=== PATIENT | male | born 1965 | race American Indian/Alaskan Native ===

== ENCOUNTER 2020-06-28 01:46 | Observation (INO) | payer OTHER ==
[2020-06-28] MEDS ORDERED: ASPIRIN 325 MG TAB PO ONE (02:11)
--- NOTE | 2020-06-28 02:39 | Emergency Department Report ---
ED Chest Pain HPI - General Chief Complaint: Chest Pain Stated Complaint: CHEST PAIN PUI?: No Time Seen by Provider: 06/28/20 02:36 Source: patient Mode of arrival: Ambulatory Limitations: No Limitations - History of Present Illness Initial Comments: Patient is a 55-year-old male that presents emergency room with complaints of l eft-sided chest pain. Patient states his chest pain started 2 days ago. Patient states his chest. Has been intermittent. Patient states to chest pain denies was gone prior to going to bed and then the chest pain came back and woke him up from his sleep approximately 3 hours ago. Patient denies shortness of breath. Patient states his chest pain is better with rest and worse with exertion. Patient denies fever and chills. Patient denies cough. Patient denies nausea vomiting. Patient denies diarrhea paresis. Patient states he has had a heart attack in the past. Patient states he has stents in his heart. Patient denies recent travel. Patient denies recent international travel. Klever tejeda denies exposure to the novel coronavirus. Patient denies sick contacts. Patient denies fever and chills. Patient denies cough. Patient denies diarrhea. Patient denies coming in contact with anybody with symptoms of the novel coronavirus. Complaint: chest pain -: Sudden, days(s) Onset: awoke with symptoms Pain Location: left chest Pain Radiation: none Severity: severe Severity scale (0 -10): 10 Consistency: constant Improves With: rest Worsens With: exertion re: denies: nausea, vomting, diaphoresis, dyspnea, sense of impending doom Other Symptoms: denies: cough, fever, syncope, rash, acid taste in mouth, leg swelling, palpitations, burping Treatments Prior to Arrival: none Aspirin use within the Past 7 Days: (1) Yes - Related Data On Oral Contraceptives: No Allergies Allergy/AdvReac Type Severity Reaction Status Date / Time No Known Allergies Allergy Verified 06/28/20 02:42 Heart Score - HEART Score History: Moderately suspicious EKG: Normal Age: 45-65 Risk factors: > 3 risk factors or hx of atherosclerotic disease Troponin: < normal limit HEART Score: 4 ED Review of Systems ROS: Stated complaint: CHEST PAIN Other details as noted in HPI Constitutional: denies: chills, fever Eyes: denies: eye pain, eye discharge, vision change ENT: denies: ear pain, throat pain Respiratory: denies: cough, shortness of breath, wheezing Cardiovascular: chest pain. denies: palpitations Endocrine: no symptoms reported Gastrointestinal: denies: abdominal pain, nausea, diarrhea Genitourinary: denies: urgency, dysuria Musculoskeletal: denies: back pain, joint swelling, arthralgia Skin: denies: rash, lesions Neurological: denies: headache, weakness, paresthesias Psychiatric: denies: anxiety, depression Hematological/Lymphatic: denies: easy bleeding, easy bruising ED Past Medical Hx - Past Medical History Previous Medical History?: Yes Hx CVA: Yes Hx Heart Attack/AMI: Yes - Surgical History Past Surgical History?: Yes Hx Coronary Stent: Yes - Family History Family history: no significant - Social History Smoking Status: Never Smoker Substance Use Type: None ED Physical Exam - General Limitations: No Limitations General appearance: alert, in no apparent distress - Head Head exam: Present: atraumatic, normocephalic - Eye Eye exam: Present: normal appearance - ENT ENT exam: Present: mucous membranes moist - Neck Neck exam: Present: normal inspection - Respiratory Respiratory exam: Present: normal lung sounds bilaterally. Absent: respiratory distress - Cardiovascular Cardiovascular Exam: Present: regular rate, normal rhythm. Absent: systolic murmur, diastolic murmur, rubs, gallop - GI/Abdominal GI/Abdominal exam: Present: soft, normal bowel sounds - Rectal Rectal exam: Present: deferred - Extremities Exam Extremities exam: Present: normal inspection - Back Exam Back exam: Present: normal inspection - Neurological Exam Neurological exam: Present: alert, oriented X3 - Psychiatric Psychiatric exam: Present: normal affect, normal mood - Skin Skin exam: Present: warm, dry, intact, normal color. Absent: rash ED Course Vital Signs 06/28/20 06/28/20 06/28/20 02:03 02:22 02:27 Temperature 98.0 F Pulse Rate 76 76 Respiratory 18 24 18 Rate Blood Pressure 179/121 O2 Sat by Pulse 100 100 Oximetry 06/28/20 06/28/20 06/28/20 02:30 02:45 03:00 Temperature Pulse Rate 77 68 69 Respiratory 18 24 19 Rate Blood Pressure 201/114 184/123 192/162 O2 Sat by Pulse 96 96 100 Oximetry 06/28/20 06/28/20 06/28/20 03:15 03:30 03:46 Temperature Pulse Rate 67 67 69 Respiratory 21 11 L 21 Rate Blood Pressure 202/127 201/128 232/159 O2 Sat by Pulse 94 97 96 Oximetry 06/28/20 06/28/20 06/28/20 04:00 04:15 04:30 Temperature Pulse Rate 66 65 62 Respiratory 22 21 21 Rate Blood Pressure 205/131 192/116 232/138 O2 Sat by Pulse 96 95 97 Oximetry 06/28/20 04:45 Temperature Pulse Rate 65 Respiratory 22 Rate Blood Pressure 189/119 O2 Sat by Pulse 98 Oximetry - Reevaluation(s) Reevaluation #1: Patient's blood pressure still elevated. Patient heart rate is below 70. Patient will be given hydralazine. I discussed all results with patient. I discussed plan of care with patient. Patient agrees with plan of care and admission. Patient to be admitted to the hospitalist service. 06/28/20 04:15 Reevaluation #2: Patient's blood pressure is currently 179/105. Patient's blood pressure is improving. 06/28/20 05:34 - Consultations Consultation #1: I discussed case with Dr. Negro, interventional cardiology. Dr. Negro states that the EKG is completely normal and is not a STEMI. 06/28/20 02:17 Consultation #2: Hospitalist consulted for admission. Hospitalist to admit patient. 06/28/20 04:18 SAHRA score - Sahra Score Age > 65: (0) No Aspirin use within the Past 7 Days: (1) Yes 3 or more CAD Risk Factors: (1) Yes 2 or more Angina events in past 24 hrs: (1) Yes Known CAD with more than 50% Stenosis: (0) No Elevated Cardiac Markers: (0) No ST Deviation Greater than 0.5mm: (0) No SAHRA Score: 3 ED Medical Decision Making - Lab Data Result diagrams: 06/28/20 02:24 06/28/20 02:24 - EKG Data -: EKG Interpreted by Me EKG shows normal: sinus rhythm, axis, intervals, QRS complexes, ST-T waves Rate: normal - Radiology Data Radiology results: report reviewed, image reviewed interpreted by me: Chest x-ray: No pneumonia, no pneumothorax, no foreign body, no osseous findings, no acute findings - Medical Decision Making Patient is a 55-year-old male that presents emergency room with complaints of chest pain. Patient chest pain going on for 2 days intermittently. Patient has coronary risk factors. Patient has CAD. Patient had labs done which were essentially unremarkable. Patient troponin is negative. Patient EKG is negative for acute findings and is a normal EKG. patient blood pressure elevated. Patient's blood pressure is consistent with hypertensive emergency. Patient given hydralazine. Patient admitted to the hospital service for further evaluation treatment and rule out ACS. - Differential Diagnosis Chest pain, ACS, CAD, hypertensive emergency Critical Care Time: Yes Critical care time in (mins) excluding proc time.: 35 Critical care attestation.: If time is entered above; I have spent that time in minutes in the direct care of this critically ill patient, excluding procedure time. Critical Care Time: 35 minutes ED Disposition Clinical Impression: Hypertensive emergency Chest pain Qualifiers: Chest pain type: unspecified Qualified Code(s): R07.9 - Chest pain, unspecified CAD (coronary artery disease) Qualifiers: Coronary Disease-Associated Artery/Lesion type: unspecified vessel or lesion type [place] vs. transplanted heart: unspecified whether [place] or transplanted heart Associated angina: angina presence unspecified Qualified Code(s): I25.10 - Atherosclerotic heart disease of [place] coronary artery without angina pectoris Disposition: DC-09 OP ADMIT IP TO THIS HOSP Is pt being admited?: Yes Does the pt Need Aspirin: No Condition: Critical Time of Disposition: 04:20
[2020-06-28 02:45] LABS: Basophils # (Auto) 0.1 K/mm3 (0.0-0.1); Basophils % (Auto) 0.8 % (0.0-1.8); Eosinophils # (Auto) 0.2 K/mm3 (0.0-0.4); Eosinophils % (Auto) 2.5 % (0.0-4.3); Lymphocytes # (Auto) 2.9 K/mm3 (1.2-5.4); Lymphocytes % (Auto) 43.4 % (13.4-35.0); Monocytes # (Auto) 0.5 K/mm3 (0.0-0.8); Monocytes % (Auto) 7.3 % (0.0-7.3)
[2020-06-28 02:48] LABS: Hemoglobin 15.4 gm/dl (11.8-15.2); Red Blood Count 4.63 M/mm3 (3.65-5.03)
[2020-06-28 02:49] LABS: Hematocrit 43.1 % (35.5-45.6); Mean Corpuscular HGB Conc 36 % (32-34); Mean Corpuscular Volume 93 fl (84-94); Platelet Count 396 K/mm3 (140-440); Red Cell Distribution Width 13.7 % (13.2-15.2)
--- NOTE | 2020-06-28 02:57 | XRay Report ---
CHEST 1 VIEW 06/28/2020 1:46 AM INDICATION / CLINICAL INFORMATION: Chest Pain. COMPARISON: None available. FINDINGS: SUPPORT DEVICES: None. HEART / MEDIASTINUM: No significant abnormality. LUNGS / PLEURA: No significant pulmonary or pleural abnormality. No pneumothorax. ADDITIONAL FINDINGS: No significant additional findings. IMPRESSION: 1. No acute findings. Signer Name: Emir Templeton MD Signed: 06/28/2020 2:52 AM Workstation Name: [id number]
[2020-06-28 03:04] LABS: BUN/Creatinine Ratio 16; Blood Urea Nitrogen 14 mg/dL (9-20); Calcium 9.1 mg/dL (8.4-10.2); Hemolysis Index 4
[2020-06-28] MEDS ORDERED: METOPROLOL TARTRATE 5 MG/5 ML INJ IV ONE (04:16)
[2020-06-28] MEDS ORDERED: hydrALAZINE 20 MG/1 ML INJ IV ONE (04:23)
[2020-06-28] MEDS ORDERED: NITROGLYCERIN 0.4 MG TAB SUBL SL PRN (04:33)
[2020-06-28] MEDS ORDERED: MORPHINE 2 MG/1 ML INJ IV PRN (04:33)
[2020-06-28] MEDS ORDERED: ACETAMINOPHEN 325 MG TAB PO PRN (04:33)
--- NOTE | 2020-06-28 04:40 | History and Physical Report ---
History of Present Illness Date of examination: 06/28/20 Date of admission: 06/28/20 04:16 Chief complaint: Chest pain History of present illness: 55-year-old male with history of stent was brought to the emergency room with complaints of left-sided chest pain which is sharp left-sided 9/10 intermittent started 2 days ago. Patient states to chest pain denies was gone prior to going to bed and then the chest pain came back and woke him up from his sleep approximately 3 hours ago. Patient denies shortness of breath. Patient states his chest pain is better with rest and worse with exertion. Patient denies fever and chills. Patient denies cough. Patient denies nausea vomiting. Patient states he has had a heart attack in the past. Patient states he has stents in his heart. Medications and Allergies Allergies Allergy/AdvReac Type Severity Reaction Status Date / Time No Known Allergies Allergy Verified 06/28/20 02:42 Review of Systems Cardiovascular: chest pain Exam - Constitutional Vitals: Temp Pulse Resp BP Pulse Ox 98.0 F 76 18 179/121 100 06/28/20 02:03 06/28/20 02:03 06/28/20 02:27 06/28/20 02:03 06/28/20 02:03 General appearance: Present: no acute distress, well-nourished - EENT Eyes: Present: PERRL ENT: hearing intact, clear oral mucosa - Neck Neck: Present: supple, normal ROM - Respiratory Respiratory effort: normal Respiratory: bilateral: diminished - Cardiovascular Heart Sounds: Present: S1 & S2. Absent: rub, click - Extremities Extremities: pulses symmetrical, No edema Peripheral Pulses: within normal limits - Abdominal General gastrointestinal: Present: soft, non-tender, non-distended, normal bowel sounds Male genitourinary: Present: normal - Integumentary Integumentary: Present: clear, warm, dry - Musculoskeletal Musculoskeletal: gait normal, strength equal bilaterally - Psychiatric Psychiatric: appropriate mood/affect, intact judgment & insight - Neurologic Neurologic: CNII-XII intact, moves all extremities HEART Score - HEART Score EKG: Normal Age: 45-65 Risk factors: > 3 risk factors or hx of atherosclerotic disease Troponin: Troponin T < 0.010 ng/mL (0.00-0.029) 06/28/20 02:24 Results - Labs CBC & Chem 7: 06/28/20 02:24 06/28/20 02:24 Labs: Laboratory Last Values WBC 6.6 K/mm3 (4.5-11.0) 06/28/20 02:24 RBC 4.63 M/mm3 (3.65-5.03) 06/28/20 02:24 Hgb 15.4 gm/dl (11.8-15.2) H 06/28/20 02:24 Hct 43.1 % (35.5-45.6) 06/28/20 02:24 MCV 93 fl (84-94) 06/28/20 02:24 MCH 33 pg (28-32) H 06/28/20 02:24 MCHC 36 % (32-34) H 06/28/20 02:24 RDW 13.7 % (13.2-15.2) 06/28/20 02:24 Plt Count 396 K/mm3 (140-440) 06/28/20 02:24 Lymph % (Auto) 43.4 % (13.4-35.0) H 06/28/20 02:24 Gem % (Auto) 7.3 % (0.0-7.3) 06/28/20 02:24 Eos % (Auto) 2.5 % (0.0-4.3) 06/28/20 02:24 Baso % (Auto) 0.8 % (0.0-1.8) 06/28/20 02:24 Lymph # (Auto) 2.9 K/mm3 (1.2-5.4) 06/28/20 02:24 Gem # (Auto) 0.5 K/mm3 (0.0-0.8) 06/28/20 02:24 Eos # (Auto) 0.2 K/mm3 (0.0-0.4) 06/28/20 02:24 Baso # (Auto) 0.1 K/mm3 (0.0-0.1) 06/28/20 02:24 Seg Neutrophils % 46.0 % (40.0-70.0) 06/28/20 02:24 Seg Neutrophils # 3.0 K/mm3 (1.8-7.7) 06/28/20 02:24 Sodium 135 mmol/L (137-145) L 06/28/20 02:24 Potassium 3.8 mmol/L (3.6-5.0) 06/28/20 02:24 Chloride 100.4 mmol/L (98-107) 06/28/20 02:24 Carbon Dioxide 26 mmol/L (22-30) 06/28/20 02:24 Anion Gap 12 mmol/L 06/28/20 02:24 BUN 14 mg/dL (9-20) 06/28/20 02:24 Creatinine 0.9 mg/dL (0.8-1.3) 06/28/20 02:24 Estimated GFR > 60 ml/min 06/28/20 02:24 BUN/Creatinine Ratio 16 % 06/28/20 02:24 Glucose 90 mg/dL (75-100) 06/28/20 02:24 Calcium 9.1 mg/dL (8.4-10.2) 06/28/20 02:24 Troponin T < 0.010 ng/mL (0.00-0.029) 06/28/20 02:24 - Imaging and Cardiology Chest x-ray: image reviewed Assessment and Plan - Patient Problems (1) Chest pain Current Visit: Yes Status: Acute Qualifiers: Chest pain type: unspecified Qualified Code(s): R07.9 - Chest pain, unspecified Plan to address problem: Admit the patient to the medical floor telemetry. Put the patient on chest pain pathway. Aspirin 325 mg p.o. daily. Lipitor 40 mg p.o. daily. Nitroglycerin as needed. Morphine 1 to 2 mg IV every 4 hours as needed we do the serial cardiac enzyme we also do a nuclear stress test Lexiscan in the morning. Consult cardiology if needed. Heparin 5000 units subcu every 8 hours for DVT prophylaxis and Protonix 40 mg p.o. daily for GI prophylaxis. Patient is a full code (2) Hypertensive emergency Current Visit: Yes Status: Acute Plan to address problem: Lisinopril 5 mg p.o. daily. We will monitor the blood pressure closely. (3) CAD (coronary artery disease) Current Visit: Yes Status: Acute Qualifiers: Coronary Disease-Associated Artery/Lesion type: unspecified vessel or lesion type [place] vs. transplanted heart: unspecified whether [place] or transplanted heart Associated angina: angina presence unspecified Qualified Code(s): I25.10 - Atherosclerotic heart disease of [place] coronary artery without angina pectoris Plan to address problem: Aspirin 325 mg p.o. daily. Lipitor 40 mg p.o. daily. Nitroglycerin as needed. Morphine 1 to 2 mg IV every 4 hours as needed .we do the serial cardiac enzyme we also do a nuclear stress test Lexiscan in the morning. Consult cardiology if needed. Heparin 5000 units subcu every 8 hours for DVT prophylaxis
[2020-06-28] MEDS ORDERED: D5W/0.45% NACL 1,000 ML IV SCH (05:00)
[2020-06-28 05:42] LABS: Basophils # (Auto) 0.1 K/mm3 (0.0-0.1); Basophils % (Auto) 1.2 % (0.0-1.8); Eosinophils # (Auto) 0.2 K/mm3 (0.0-0.4); Eosinophils % (Auto) 2.8 % (0.0-4.3); Hematocrit 41.4 % (35.5-45.6); Hemoglobin 14.6 gm/dl (11.8-15.2); Lymphocytes # (Auto) 2.7 K/mm3 (1.2-5.4); Lymphocytes % (Auto) 40.6 % (13.4-35.0); Mean Corpuscular HGB Conc 35 % (32-34); Mean Corpuscular Volume 94 fl (84-94); Monocytes # (Auto) 0.5 K/mm3 (0.0-0.8); Monocytes % (Auto) 8.1 % (0.0-7.3); Platelet Count 340 K/mm3 (140-440); Red Blood Count 4.39 M/mm3 (3.65-5.03); Red Cell Distribution Width 13.3 % (13.2-15.2)
[2020-06-28] MEDS: HEPARIN 5,000 UNIT/1 ML VIAL SUB-Q SCH ×3 (05:52→21:57)
[2020-06-28 06:02] LABS: Blood Urea Nitrogen 14 mg/dL (9-20); Calcium 8.7 mg/dL (8.4-10.2); Hemolysis Index 6
[2020-06-28 06:04] LABS: BUN/Creatinine Ratio 20
[2020-06-28] MEDS ORDERED: REGADENOSON 0.4 MG/5 ML INJ IV ONE (07:19)
--- NOTE | 2020-06-28 07:54 | Event Note ---
Date: 06/28/20 Patient remains with Hypertensive urgency. Start on Norvasc and HCTZ, obtain cardiology eval, will monitor blood pressure for at least 24 hours to make sure that we have acute blood pressure prior to patient being discharged. Chest pain has since resolved.
[2020-06-28] MEDS ORDERED: hydrALAZINE 20 MG/1 ML INJ IV PRN (08:00)
[2020-06-28] MEDS ORDERED: METOPROLOL TARTRATE 25 MG TAB PO SCH (10:00)
[2020-06-28] MEDS ORDERED: amLODIPine 10 MG TAB PO SCH (10:00)
[2020-06-28] MEDS ORDERED: lamoTRIgine 25 MG TAB PO SCH (10:00)
[2020-06-28] MEDS ORDERED: DIVALPROEX DR 500 MG TAB PO SCH (10:00)
[2020-06-28] MEDS: hydroCHLOROthiazide 25 MG TAB PO SCH (12:52)
[2020-06-28] MEDS: amLODIPine 10 MG TAB PO SCH (12:52)
[2020-06-28] MEDS: LISINOPRIL 5 MG TAB PO SCH (12:52)
[2020-06-28] MEDS: PANTOPRAZOLE 40 MG TAB PO SCH (12:52)
--- NOTE | 2020-06-28 12:58 | Treadmill Report ---
PHARMACOLOGIC MYOCARDIAL PERFUSION IMAGING REPORT A 55-year-old gentleman presents with left-sided chest pain of 2 days' duration, the patient gives history of having a stent put in the heart many years ago at [facility] for a stroke. Denies any history of hypertension; however, the patient's blood pressure is significantly elevated, diastolic up to 100-110 mmHg. Baseline EKG showed sinus rhythm within normal limits. The patient received IV regadenoson 0.1 mg injection and tolerated it well. Only minor side effects were noted. EKG showed sinus rhythm with no significant EKG changes to suggest ischemia. The patient did not have any chest pain. The patient had resting myocardial perfusion images using technetium 99m sestamibi tracer. Post-vasodilation with IV regadenoson. The patient had perfusion images using the same agent along with gating was performed. Following findings were noted. Post-stress images showed a mild inferior defect involving the apical and mid parts, otherwise rest of the myocardium showed normal perfusion. Similar findings of mild perfusion defects in the inferior wall were noted during rest images. Gated studies showed normal motion of the left ventricle with calculated ejection fraction of 64%, end-diastolic volume of 98 mL and end-systolic volume of 35 mL. Transient ischemic dilation ratio was noted to be 1.48. FINAL IMPRESSION: 1. The patient tolerated the IV regadenoson well with no significant anginal pain. 2. EKG showed sinus rhythm with no ST-T changes to suggest ischemia. 3. Myocardial perfusion images showed no significant reversible defect to suggest ischemia, left ventricular systolic function and wall motion was found to be normal with calculated ejection fraction of 64%. The patient's transient ischemic dilation ratio was found to be 1.48, significance of this is not clear in the setting of the above findings. At this time, the patient did not show significant perfusion abnormalities and left ventricular function was normal along with normal hemodynamic response with IV regadenoson. Prognostically, this is felt to be a low-risk study. [facility]# [id number] ABRIL/MANOLO CHOUDHARY
--- NOTE | 2020-06-28 16:52 | Event Note ---
Date: 06/28/20 Patient was seen by Dr. Wang earlier this morning and conducted the stress test, please refer to his service for further cardiac consultation and management as indicated.
[2020-06-28] MEDS ORDERED: ONDANSETRON 4 MG/2 ML INJ IV PRN (19:07)
[2020-06-28] MEDS: METOPROLOL TARTRATE 25 MG TAB PO SCH (21:57)
[2020-06-28] MEDS ORDERED: TOPIRAMATE TAB 25 MG TAB PO SCH (22:00)
[2020-06-28] MEDS ORDERED: ALPRAZolam 0.5 MG TAB PO PRN (23:14)
[2020-06-29] MEDS: PANTOPRAZOLE 40 MG TAB PO SCH (08:39)
[2020-06-29] MEDS: HEPARIN 5,000 UNIT/1 ML VIAL SUB-Q SCH ×2 (08:39→14:39)
[2020-06-29] MEDS ORDERED: ASPIRIN EC 325 MG TAB PO SCH (10:00)
[2020-06-29] MEDS: METOPROLOL TARTRATE 25 MG TAB PO SCH (10:50)
[2020-06-29] MEDS: LISINOPRIL 5 MG TAB PO SCH (10:50)
[2020-06-29] MEDS: amLODIPine 10 MG TAB PO SCH (10:50)
[2020-06-29] MEDS: hydroCHLOROthiazide 25 MG TAB PO SCH (10:50)
[2020-06-29 16:22] VITALS: BP 150/108
--- NOTE | 2020-06-29 18:19 | Discharge Summary ---
Providers - Providers Date of Admission: 06/28/20 04:16 Date of discharge: 06/29/20 Attending physician: NATALI DE JESUS 06/28/20 Consult to Cardiac Rehabilitation [CONS] Routine Reason For Exam: Phase I Primary care physician: SCRIP CLERK Hospitalization Condition: Critical Pertinent studies: Lexiscan negative Hospital course: 55-year-old male with history of stent was brought to the emergency room with complaints of left-sided chest pain which is sharp left-sided 9/10 intermittent started 2 days ago. Patient states to chest pain denies was gone prior to going to bed and then the chest pain came back and woke him up from his sleep approximately 3 hours ago. Patient denies shortness of breath. Patient states his chest pain is better with rest and worse with exertion. Patient denies fever and chills. Patient denies cough. Patient denies nausea vomiting. Patient states he has had a heart attack in the past. Patient states he has stents in his heart. 06/29/2020 Patient had stress test yesterday which was normal Ejection fraction was normal Blood pressure control to a large extent but still high 150/108 We will discharge on blood pressure medications adjusting to a higher dosage Patient to follow-up with [facility] or primary care physician Disposition: DC-01 TO HOME OR SELFCARE Time spent for discharge: 35 minutes - Discharge Diagnoses (1) Chest pain Status: Acute Qualifiers: Chest pain type: unspecified Qualified Code(s): R07.9 - Chest pain, unspecified Comment: Stress test negative (2) Hypertensive emergency Status: Acute Comment: Blood pressure medicines adjusted Core Measure Documentation - Palliative Care Palliative Care/ Comfort Measures: Not Applicable - Core Measures Any of the following diagnoses?: none Exam - Constitutional Vitals: Temp Pulse Resp BP Pulse Ox 97.1 F L 77 18 150/108 100 06/29/20 16:00 06/29/20 16:00 06/29/20 16:00 06/29/20 16:00 06/29/20 16:00 General appearance: Present: no acute distress, well-nourished - EENT Eyes: Present: PERRL ENT: hearing intact, clear oral mucosa - Neck Neck: Present: supple, normal ROM - Respiratory Respiratory effort: normal Respiratory: bilateral: CTA - Cardiovascular Heart rate: 78 Rhythm: regular Heart Sounds: Present: S1 & S2. Absent: rub, click - Extremities Extremities: pulses symmetrical, No edema Peripheral Pulses: within normal limits - Abdominal General gastrointestinal: Present: soft, non-tender, non-distended, normal bowel sounds Male genitourinary: Present: normal - Integumentary Integumentary: Present: clear, warm, dry - Musculoskeletal Musculoskeletal: gait normal, strength equal bilaterally - Psychiatric Psychiatric: appropriate mood/affect, intact judgment & insight - Neurologic Neurologic: CNII-XII intact, moves all extremities Plan Activity: no restrictions Diet: low salt Follow up with: PRIMARY CARE, [Primary Care Provider] - 3-5 Days
== END 2020-06-29 20:34 | disposition home or self-care (01) ==
LOC: ED 01:46 → 4A 04:16
PROVIDERS: ADMIT Hospitalist; ATTEND Internal Medicine
DX: R07.89 Other chest pain (principal); I16.1 Hypertensive emergency; I25.10 Atherosclerotic heart disease of native coronary artery without angina pectoris
CPT/HCPCS: 36415; 71045; 78452; 80048; 84484; 85025; 93005; 93017; 96361; 96372; 96374; 96375; 96376; 99291; A9270; A9502; G0378; J0360; J1644; J2405; J2785